=== PATIENT | female | born 1965 | race Caucasian/White ===

== ENCOUNTER 2024-03-17 13:24 | Emergency (ER) | payer BC ==
[~2024-03-17] VITALS: Ht 167.6 cm; Wt 100.0 kg
[2024-03-17 13:26] VITALS: O2SAT 98
[2024-03-17] MEDS: IBUPROFEN 600MG TABLET PO ONE (14:41)
[2024-03-17] MEDS: HYDROCODONE/ACETAMINOPHEN 5/325MG TABLET PO ONE (14:41)
[2024-03-17] MEDS ORDERED: IBUP-2029 MT (16:16)
[2024-03-17] MEDS ORDERED: HYDR-4001 MT (16:16)
[2024-03-17] MEDS: HYDROCODONE/ACETAMINOPHEN 10/325MG TABLET PO ONE (16:56)
[2024-03-17 17:28] VITALS: BP 142/68; PULSE 71; RESP 16; TEMP 36.78072; O2SAT 98
== END 2024-03-17 18:18 | disposition home or self-care (01) ==
LOC: ER 13:55
DX: S82.041A Displaced comminuted fracture of right patella, initial encounter for closed fracture (principal); Z98.890 Other specified postprocedural states; Z85.9 Personal history of malignant neoplasm, unspecified; W18.39XA Other fall on same level, initial encounter; Y93.89 Activity, other specified; Y92.89 Other specified places as the place of occurrence of the external cause; Y99.8 Other external cause status
CPT/HCPCS: 72170; 73130; 73564; 99284; Z7610; L1830